=== PATIENT | female | born 1990 | race Caucasian/White ===

== ENCOUNTER 2021-08-17 19:45 | Inpatient (IN) ==
[2021-08-17] MEDS ORDERED: OXYTOCIN 30 UNITS/500 ML BAG IV PRN (20:53)
[2021-08-17] MEDS: LACTATED RINGER'S 1,000 ML IV PRN (21:14)
[2021-08-17 21:22] LABS: Hematocrit (blood only) 39.7 % (37-47); Hemoglobin 13.5 g/dL (12.0-16.0); Mean Corpuscular Hemoglobin 31.7 pg (25-34); Mean Corpuscular Volume 93.2 fL (80-100); Platelet Count 277 K/uL (130-400); RDW Coefficient of Variation 13.8 % (11.5-14.5); RDW Standard Deviation 46.8 fL (36.4-46.3); Red Blood Count 4.26 M/uL (4.2-5.4); White Blood Count 18.08 K/uL (4.8-10.8)
[2021-08-17] MEDS ORDERED: ePHEDrine sulfate 50 MG/ML AMP ONE (21:24)
[2021-08-17] MEDS ORDERED: BUPIVACAINE 0.25% 30 ML VIAL ONE (21:24)
[2021-08-17] MEDS ORDERED: SODIUM CHLORIDE 0.9% INJ 10 ML VIAL ONE (21:24)
[2021-08-17] MEDS ORDERED: fentaNYL 2MCG/ML ROPIVACAINE 1.25MG/ML 100 ML BAG EPI ONE (21:25)
[2021-08-17] MEDS ORDERED: fentaNYL citrate 100 MCG/2 ML VIAL ONE (21:25)
[2021-08-17] MEDS ORDERED: BUTORPHANOL TARTRATE 1 MG/ML VIAL IV PRN (21:33)
--- NOTE | 2021-08-17 21:41 | History & Physical Report ---
Date of Service August 17, 2021 Assessment & Plan (1) Normal labor: Plan: IUP at 38 weeks in labor with SPROM patient requesting epidural see orders for further directions anticipate vaginal . Admission and Anticipated Discharge Date Admission Date: August 17, 2021 History of Present Illness Primary Care Provider: Storm Rowland Patient is a 30yo white female EDC 08/29/21 who presents with a history of SPROM followed by regular contractions at about 1900 tonight. baby has been active. complicated by mild pyelectasis that resolved at 25 weeks gestation. GBS negative /O-positive Allergies Allergy/AdvReac Type Severity Reaction Status Date / Time No Known Drug Allergies Allergy Unknown Verified 08/17/21 20:07 Home Medications Medication Instructions Recorded Confirmed Type cetirizine 10 mg tablet 20 mg PO DAILY 08/27/19 08/17/21 History prenat.vits,luis manuel,ume-[id number] 1 tab PO DAILY 01/12/21 08/17/21 History Patient History Medical History Chlamydia History of chicken pox Surgical History H/O oral surgery Hx of colposcopy with cervical biopsy [place] teeth extracted Family History Mother Cancer skin cancer Denies family history of Ovarian cancer Prostate cancer Breast cancer Colorectal cancer Social History Smoking Status: Never smoker Hx Alcohol Use: No Hx Substance Use: No Preferred Language: Sami 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 FOB changes litter. 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 Feels Safe at Home: Yes Safety Concerns: Feels Safe At This Time Review of Systems All systems reviewed & are unremarkable except as noted in HPI & below Physical Exam Constitutional: WD/WN, vitals as above Respiratory: normal respiratory effort, lungs clear to auscultation Cardiovascular: RRR, no murmur, no edema Psychiatric: A+Ox3, euthymic affect Genitourinary: OB Exam Abdomen: + vertex and + regular contractions (3-5 minutes- moderate) Manual OB Exam: + cervical dilation 2 cm, + cervical effacement 70%, + station high and + amniotic fluid (SPROM after exam) clear OB Exam Monitor Tracing: + external FHT monitor used, + external uterine monitor used, + category I and + normal FHT variability Results & Data ([facility]) Vital Signs (Past 12 Hours) Vital Signs Temp Pulse Resp BP 08/17/21 20:10 98.4 F 93 H 18 134/76 08/17/21 19:56 93 H 134/76 Code Status & VTE Plan VTE Prophylaxis Plan VTE Prophylaxis will be ordered: No Coding Level of Care Code None Diagnoses Normal labor O80; Z37.9
--- NOTE | 2021-08-17 21:52 | Anesthesiology Consultation ---
Date of Service August 17, 2021 Assessment & Plan Chart Review Chart Review: Patient NOT seen in Pre Admission Testing and Acceptable Risk for Labor Epidural Consults Requested none ASA ASA3 Proposed Anesthesia Anesthesia Type: Labor Epidural and CSE Risk / Benefits Reviewed With: PT / POA / Parent / Guardian, Accepts Plan and Informed Consent Obtained Additional Comments: covid test neg. History Height/Weight Height: 5 ft 8 in Weight: 110.223 kg Allergies Allergy/AdvReac Type Severity Reaction Status Date / Time No Known Drug Allergies Allergy Unknown Verified 08/17/21 20:07 Medications Home Medications Medication Instructions Recorded Confirmed Last Taken cetirizine 10 mg tablet 20 mg PO DAILY 08/27/19 08/17/21 08/17/21 08:00 prenat.vits,luis manuel,vul-[id number] 1 tab PO DAILY 01/12/21 08/17/21 08/17/21 08:00 Active Medications Generic Name Dose Route Start Last Admin Trade Name Freq PRN Reason Stop Dose Admin Lactated Ringer's 1,000 mls @ 125 mls/hr 08/17/21 20:53 08/17/21 21:14 Lr IV 08/19/21 20:52 999 mls/hr .Q8H PRN Infusion L&D Protocol Protocol NPO Date Last Intake of Fluids: 08/17/21 Time Last Intake of Fluids: 21:00 Date Last Intake of Solids: 08/17/21 Time Last Intake of Solids: 12:00 Past Medical History Medical History Chlamydia History of chicken pox Exercise / Class Metabolic Activity II 4-5 Yardwork/Stairs/Walk up hill Past Family History Family History Mother Cancer skin cancer Denies family history of Ovarian cancer Prostate cancer Breast cancer Colorectal cancer Past Surgical History Surgical History H/O oral surgery Hx of colposcopy with cervical biopsy [place] teeth extracted Past Anesthesia History No Hx of Anesthesia Complications and No Family Hx of Anesthesia Complications History of PONV No Hx of PONV and No Hx of Motion Sickness Social History Smoking Status: Never smoker Hx Alcohol Use: No Hx Substance Use: No substance use type: does not use Physical Exam Vital Signs Last Vital Signs Temp 36.9 C 08/17/21 20:10 Pulse 92 H 08/17/21 21:45 Resp 18 08/17/21 20:10 BP 134/76 08/17/21 20:10 Pulse Ox 100 08/17/21 21:45 Constitutional + morbidly obese ENMT Mouth: no dentition abnormality Thyromental Distance: > or= 3.5 Finger Breadths Mallampati Class: II Neck normal visual inspection and trachea midline Respiratory normal respiratory effort Auscultation: lungs clear to auscultation bilaterally Cardiovascular Rate/Rhythm: regular rate and regular rhythm Heart Sounds: no murmur Vessels: no carotid bruit Musculoskeletal Spine: lumbar spine normal to inspection; normal cervical ROM Neurologic moves all extremities Motor/Sensory: no sensory deficit Psychiatric Orientation: alert and oriented x 3 Testing Laboratory Results 08/17/21 21:16
[2021-08-17] MEDS ORDERED: NALOXONE HCL 1 MG in SODIUM CHLORIDE 0.9% 1000ML 1,000 ML IV PRN (22:15)
[2021-08-17] MEDS ORDERED: NALBUPHINE HCL INJ 10 MG/ML AMP IV PRN (22:15)
[2021-08-17] MEDS ORDERED: ONDANSETRON INJ 2 MG/ML 2 ML VIAL IV PRN (22:15)
[2021-08-17] MEDS ORDERED: PROMETHAZINE HCL 25 MG in SODIUM CHLORIDE 0.9% 50 ML IV PRN (22:15)
[2021-08-17] MEDS ORDERED: fentaNYL 2MCG/ML ROPIVACAINE 1.25MG/ML 100 ML BAG EPI PRN (22:15)
[2021-08-17] MEDS ORDERED: NALOXONE HCL 0.4 MG/1 ML VIAL/CARP IV PRN (22:15)
[2021-08-17] MEDS ORDERED: diphenhydrAMINE 50 MG/ML VIAL IV PRN (22:15)
[2021-08-17] MEDS ORDERED: ePHEDrine sulfate 50 MG/ML AMP IV PRN (22:15)
[2021-08-17] MEDS ORDERED: NURSING L&D Epidural Breakthrough Pain Update ONE (23:52)
[2021-08-18] MEDS ORDERED: BUPIVACAINE 0.25% 30 ML VIAL ONE (00:30)
[2021-08-18] MEDS: LACTATED RINGER'S 1,000 ML IV PRN ×2 (01:04→07:08)
--- NOTE | 2021-08-18 03:11 | Communication Note ---
Date of Service: August 18, 2021 Called by OB nurse for pain. Patient very uncomfortable. Feels epidural was initially working well, but now not. Does not note any laterality to symptoms. The catheter is 15cm at the skin. I pulled the catheter back to 9cm at the skin, redressed the site, and bolused with 8cc of 0.25% marcaine. Patient became much more comfortable. Plan to cont inue PCEA at current settings.
[2021-08-18] MEDS ORDERED: OXYTOCIN 30 UNITS/500 ML BAG IV PRN ×2 (05:21→08:58)
[2021-08-18] MEDS ORDERED: NURSING L&D Epidural Breakthrough Pain Update ONE (05:59)
[2021-08-18] MEDS ORDERED: oxyCODONE/ACETAMINOPHEN 5mg/325mg TAB PO PRN (08:58)
[2021-08-18] MEDS ORDERED: bisacodyL 10 MG SUPP PR PRN (08:58)
[2021-08-18] MEDS ORDERED: DIPHTHERIA/TETANUS/PERTUSSIS 0.5 ML SYR/VIAL IM ONE (08:58)
[2021-08-18] MEDS ORDERED: ACETAMINOPHEN 325 MG TAB PO PRN (08:58)
[2021-08-18] MEDS ORDERED: SUPERCREAM 0.870% 15 GM JAR EXT PRN (08:58)
[2021-08-18] MEDS ORDERED: HYDROCORTISONE ACETATE 25 MG SUPP PR PRN (08:58)
[2021-08-18] MEDS ORDERED: BENZOCAINE 20% AER SPR 82.5 GM CAN EXT PRN (08:58)
--- NOTE | 2021-08-18 09:04 | Delivery Summary ---
Vaginal Delivery Summary Date of Service August 18, 2021 Vaginal Delivery Summary and 2nd Degree LAC Patient is a 30-year-old 1 P0 white female who presents at 38 weeks with a chief complaint of ruptured membranes she began frank shortly after that. She requested epidural analgesia upon arrival in labor and delivery which was effective initially but then needed to be rebolused later in the labor. She progressed to complete but had no sensation to push initially. She labor down for 3 hours and at this point her epidural rate was reduced to increase perineal sensation to push. Pitocin augmentation was also begun at this time as contractions had spaced out. She pushed effectively over intact perineum for delivery of a viable male . The pr delivered in the occiput posterior presentation. Loose nuchal cord was reduced after delivery of the head. The shoulders were then delivered without the mother's effort easily. He was placed on the mother's abdomen for further attention and drying. He was vigorous and crying after initial stimulation. After cord blood was obtained, the placenta was expressed intact with a three-vessel cord. A second-degree perineal laceration was repaired with 3-0 chromic in the usual fashion. bleeding was controlled with dilute Pitocin and fundal massage. Estimated blood loss was 300 cc. Mother and infant were doing well after delivery. [facility] [place] Vaginal Delivery Charge Delivery Type Details: and 2nd Degree LAC
--- NOTE | 2021-08-18 10:12 | Anesthesia Procedure Note ---
Date of Service August 18, 2021 Anesthesia Post Epidural Note Vital Signs Vital Signs: Temp Pulse Resp BP Pulse Ox 36.8 C 84 18 115/58 L 87 L 08/18/21 07:00 08/18/21 09:58 08/18/21 07:00 08/18/21 09:58 08/18/21 08:50 Pain Intensity Lower Abdomen: Pain Intensity: 0 Notes Mental Status: alert / awake / arousable Nausea / Vomiting: adequately controlled Pain: adequately controlled Airway Patency, RR, SpO2: stable & adequate BP & HR: stable & adequate Hydration State: stable & adequate Neuraxial Anesthesia: was administered and sensory block is resolving Anesthetic Complications: no major complications apparent Epidural: Removed without complications and With tip intact
[2021-08-18] MEDS: IBUPROFEN 600 MG TAB PO PRN ×2 (12:10→20:04)
[2021-08-18] MEDS ORDERED: LORazepam 1 MG/2 ML VIAL IV STA ×2 (16:11→16:17)
[2021-08-18] MEDS: DOCUSATE SODIUM 100 MG CAP PO SCH (20:05)
[2021-08-19] MEDS: IBUPROFEN 600 MG TAB PO PRN ×4 (03:06→17:11)
[2021-08-19 06:37] LABS: Hematocrit (blood only) 31.3 % (37-47); Hemoglobin 10.4 g/dL (12.0-16.0); Mean Corpuscular Hemoglobin 31.4 pg (25-34); Mean Corpuscular Hgb Conc 33.2 g/dL (32-36); Mean Corpuscular Volume 94.6 fL (80-100); Mean Platelet Volume 8.6 fL (7.4-10.4); Platelet Count 215 K/uL (130-400); RDW Coefficient of Variation 14.2 % (11.5-14.5); RDW Standard Deviation 49.4 fL (36.4-46.3); Red Blood Count 3.31 M/uL (4.2-5.4); White Blood Count 17.87 K/uL (4.8-10.8)
[2021-08-19] MEDS: DOCUSATE SODIUM 100 MG CAP PO SCH (07:54)
[2021-08-19] MEDS ORDERED: PRENATAL VITAMIN 1 TAB PO SCH (08:00)
--- NOTE | 2021-08-19 08:30 | Obstetrical Progress Note ---
Date of Service August 19, 2021 Assessment & Plan (1) examination following vaginal delivery: stable, donohue removed for voiding trial. breast/rhpos/ri. she will cont to work on feeding. she wants to consider going home, will see how feeding and voiding trial going by later today. Day #:: 1 Subjective Ambulation: ambulating normally Voiding: donohue catheter in place (removed this am) Diet Tolerance:: regular diet Lochia:: Small Feeding Type:: breast feeding some pain, vulvar soreness, still swollen, hard to sit. trying to breastfeed, still working at it. Constitutional: + as per Subjective / HPI Physical Exam Constitutional WD/WN, vitals as above Respiratory normal respiratory effort, lungs clear to auscultation Cardiovascular Rate/Rhythm: regular rate and regular rhythm Gastrointestinal (Abdomen) Inspection/Auscultation: abdomen normal to inspection Percussion/Palpation: abdomen soft Fundus firm 2cm down Musculoskeletal nt calves +1 edema Neurologic grossly normal Psychiatric A+Ox3, euthymic affect Results & Data ([facility]) Vital Signs (Past 12 Hours) Vital Signs Temp Pulse Resp BP Pulse Ox 08/19/21 03:00 98.1 F 75 18 110/73 97 08/19/21 00:20 98.2 F 76 20 107/68 98
[2021-08-19] MEDS ORDERED: bisacodyL 5 MG TABEC PO SCH (20:00)
== END 2021-08-19 18:58 | disposition home or self-care (01) | DRG 807 ==
LOC: OPB 19:45 → 4S1 19:47 → 4S2 08-18 12:03